=== PATIENT | female | born 1960 | race Caucasian/White ===

== ENCOUNTER 2022-01-28 07:42 | Day surgery (SDC) | payer BC, OTHER ==
--- NOTE | 2022-01-27 16:22 | RAD REPORT ---
EXAM DESCRIPTION: RAD - Chest Pa And Lat (2 Views) - 01/27/2022 4:17 pm CLINICAL HISTORY: Pre op pending hernia surgery Chest pain. COMPARISON: CHEST SINGLE VIEW dated 12/24/2013; CHEST PA AND LAT 2 VIEW dated 06/03/2010; CHEST SINGLE VIEW dated 02/14/2008 TECHNIQUE: PA and lateral views of the chest were obtained. FINDINGS: The lungs are hyperexpanded compatible with COPD. The heart is upper limit of normal in si ze. Sternotomy. No fracture or aggressive bony process. IMPRESSION: COPD without acute process identified. The USPSTF recommends annual screening for lung cancer with low-dose CT (LDCT) in adults aged 50 to 80 years who have a 20 pack-year smoking history and currently smoke or have quit within the past 15 years.
[2022-01-27 16:49] LABS: Absolute Lymphocytes (CBC) 3.8 K/uL (0.7-4.9); Hematocrit 39.9 % (36.0-45.0); Lymphocytes % 38.5 % (15.3-44.8); MCV 89.7 fL (80-100); MPV 7.1 fL (7.6-11.3); RBC Red Blood Cell Count 4.45 M/uL (3.86-4.86)
[2022-01-27 17:10] LABS: Potassium 4.3 mmol/L (3.5-5.1)
[2022-01-27 17:21] LABS: SARS-CoV-2 Antigen Rapid Res Negative (Negative)
[2022-01-28] MEDS ORDERED: Ringers Lactate 1,000 ML IV ONE (08:15)
[2022-01-28] MEDS ORDERED: CEFAZOLIN SODIUM 1 GM/VIAL ONE (08:15)
[2022-01-28] MEDS ORDERED: BUPIVACAINE 0.5% PF 10 ML VIAL ONE (08:46)
[2022-01-28] MEDS ORDERED: propofoL 200 MG/20 ML VIAL IV ONE (09:07)
[2022-01-28] MEDS ORDERED: LIDOCAINE 1% MPF 5 ML VIAL ONE (09:47)
[2022-01-28] MEDS ORDERED: MIDAZOLAM HCL 2 MG/2 ML INJ ONE (09:47)
[2022-01-28] MEDS ORDERED: ROCURONIUM 50 MG/5 ML VIAL IV ONE (09:47)
[2022-01-28] MEDS ORDERED: FENTANYL CITR 100 MCG/2 ML ONE (09:47)
[2022-01-28] MEDS ORDERED: NS 0.9% VIAL 10 ML ONE (10:28)
[2022-01-28] MEDS ORDERED: KETOROLAC 30 MG/ML INJ ONE (10:44)
[2022-01-28] MEDS ORDERED: dexAMETHasone 10 MG/ML VIAL ONE (10:44)
[2022-01-28] MEDS ORDERED: NEOSTIGMINE 1 MG/ML -10 ML VIAL ONE (10:45)
[2022-01-28] MEDS ORDERED: GLYCOPYRROLATE 0.2 MG/ML SYR ONE (10:45)
[2022-01-28] MEDS ORDERED: ONDANSETRON 4 MG/2 ML VIAL ONE (10:45)
--- NOTE | 2022-01-28 11:17 | P.OP ---
Date of Service: 01/28/22 Preop diagnosis: Incarcerated umbilical hernia Postop diagnosis: Same Procedure performed: Laparoscopic repair of incarcerated umbilical hernia Surgeon: Jack Mckoy MD Language Pathologist: MARIANNA Shah Estimated blood loss: Minimal Specimen: Hernia sac and contents Findings: Findings above Anesthesia: General Complications: None Drains: None Fluids and blood products: Nonapplicable Disposition: Recovery room Operative note: Patient brought to the OR and placed in the supine position. General anesthesia begun. Patient prepped and draped in the usual sterile fashion. Marcaine 0.5% infiltrated locally. 15 blade used to make a 1 cm left upper quadrant incision. Subcutaneous tissue divided. Fascia identified and divided. #1 Vicryl stay suture placed. Peritoneal cavity entered with sharp and blunt dissection. 12 mm trocar placed into the peritoneal cavity under direct vision. Pneumoperitoneum established. And a 5 mm trocar placed in the left lower quadrant. Laparoscopy revealed incarcerated hernia just above the umbilicus with preperitoneal fat present. A 4 cm incision made over the hernia. Subcutaneous tissue divided. Hernia sac and contents identified. Hernia sac excised from the fascial edges. A 2 cm defect remained. Ventralex, medium in size, placed and secured with a [id number] #1 PDS suture. Complete coverage of the hernia defect accomplished. Wound irrigated and bleeding controlled cautery. Laparoscopy reestablished and Protack used to secure the mesh to the peritoneal surface. Complete coverage of the hernia defect accomplished with at least 3 cm border. Subsequently, all trochars removed under direct vision. Stay sutures tied to each other to reapproximate the fascial defect. Subcutaneous was irrigated. Bleeding controlled cautery. 3-0 chromic used to close the subcutaneous tissue and skin. Sterile dressing applied. Patient awakened and taken to recovery room in good general condition. CC: Dr. Tang's office
[2022-01-28] MEDS ORDERED: Mastisol Adhesive Liq ONE (11:19)
[2022-01-28] MEDS ORDERED: HYDROMORPHONE HCL 1 MG/ML INJ ONE (11:48)
--- NOTE | 2022-01-28 12:32 | EKG ---
Test Date: 2022-01-27 Test Time: 16:01:54 Ceramic Artist: PJ MEASUREMENT RESULTS: Intervals: Rate: 64 CO: 160 QRSD: 80 QT: 426 QTc: 439 [place]: P: 51 CO: 160 QRS: -29 T: 81 INTERPRETIVE STATEMENTS: Normal sinus rhythm Possible Left atrial enlargement Septal infarct, age undetermined Abnormal ECG Compared to ECG 12/24/2013 06:37:50 Myocardial infarct finding now present Sinus bradycardia no longer present Electronically Signed On 01-28-22 12:32:06 CDT by Emerson Vazquez
[2022-01-28] MEDS ORDERED: TRAMADOL 37.5mg/APAP 325mg PER TAB ONE (12:52)
[2022-01-28 12:55] VITALS: BP 105/62; TEMP 98; O2SAT 100
== END 2022-01-28 13:15 | disposition home or self-care (01) ==
LOC: OR 07:42
PROVIDERS: ATTEND Surgery
PROC: 0WUF4JZ Supplement Abdominal Wall with Synthetic Substitute, Percutaneous Endoscopic Approach (ICD-10-PCS; principal; 2022-01-28 09:00)
DX: K42.0 Umbilical hernia with obstruction, without gangrene (principal); Z20.822 Contact with and (suspected) exposure to COVID-19
CPT/HCPCS: 93005; 85025; 80048; 36415; 88302; 71046; 87811; 49653; J2704; J2710; J2001; J2250; J3010; J1100; A4216; J1170; J7120; J2405; J0690